=== PATIENT | female | born 1955 | race Caucasian/White ===

== ENCOUNTER → 2023-01-21 | Outpatient (CLI) | payer MEDICARE, MEDICAID, SELFPAY ==
--- NOTE | 2023-01-21 11:25 | MRI_ITS ---
EXAM: MR PELVIS WITHOUT AND WITH INTRAVENOUS CONTRAST CLINICAL INDICATION: PERIURETHRAL CYST -- URETHRA TECHNIQUE: Multiplanar and multisequence MR images of the pelvis without and with intravenous contrast. CONTRAST: 17 mL Clariscan COMPARISON: No relevant prior studies available. FINDINGS: APPENDIX: Not seen INTRAPERITONEAL SPACE: Unremarkable. No ascites or other fluid collection. BLADDER: Not well distended. No bladder wall thickening. No urinary bladder calculi. Normal appearance of the urethra (image 14 series 10, image 12 series 5) without diverticulum. REPRODUCTIVE: Hysterectomy. No adnexal masses. BONES/JOINTS: Unremarkable. No suspicious lytic or blastic abnormality. SOFT TISSUES: Unremarkable. No pelvic wall hernia. LYMPH NODES: Unremarkable. No enlarged lymph nodes. MRI/Pelvis W/WO Contrast IMPRESSION: Normal pelvis MRI. Electronically Signed: Sohail Greer (Brooks), at 7:43 EDT Reading Location ID and State: [facility] / [place] , Service support ,
[2023-01-21 12:00] LABS: CREATININE FINGERSTICK < 0.9 mg/dL (0.55-1.02); EGFR FINGERSTICK > 60.0000 mL/min (>60)
== END | disposition home or self-care (01) ==
LOC: MRI 11:04
PROVIDERS: PCP Student in an Organized Health Care Education/Training Program; Referring Provider Urology; Visit Provider Urology
DX: N36.8 Other specified disorders of urethra (principal)
CPT/HCPCS: 72197; A9575

== ENCOUNTER 2023-02-11 08:51 | Day surgery (SDC) | payer MEDICARE, MEDICAID, SELFPAY ==
[2023-02-11] VITALS (7 sets, daily range): BP systolic 101–116; BP diastolic 60–78; PULSE 63–89; RESP 14–17; TEMP 36.2–36.9; O2SAT 91–95; BMI 32.5
--- NOTE | 2023-02-11 09:03 | EKG12_ITS ---
Test Reason : PRE OP Blood Pressure : / mmHG Vent. Rate : 065 BPM Atrial Rate : 065 BPM P-R Int : 108 ms QRS Dur : 082 ms QT Int : 418 ms P-R-T Axes : 127 090 147 degrees QTc Int : 434 ms Suspect arm lead reversal, interpretation assumes no reversal Unusual P axis, possible ectopic atrial rhythm Abnormal ECG No previous ECGs available Confirmed by RISA VALENTE, DESMOND ([id number]), deputy editor in chief JOSSY WHITTEN ([id number]) on 02/12/2023 9:29:33 AM Referred By: Eli Bruno Confirmed By:DESMOND LORD MD
[2023-02-11] MEDS: Lactated Ringers 1,000 ML 15 ML IV (09:27)
[2023-02-11 09:41] LABS: Hematocrit 42.1 % (37-47); Hemoglobin 14.2 g/dL (12.0-15.0); Mean Corp Hgb Conc 33.7 g/dL (32-36); Mean Corpuscular Hgb 32.3 pg (27.0-32.0); Mean Corpuscular Volume 95.9 fL (81-99); Mean Platelet Vol. 10.3 fl (6.2-12.0); Platelet Count 168 K/mm3 (150-450); RBC Distribution Width CV 12.3 % (11.6-14.6); RBC Distribution Width SD 43.5 fl (35.1-43.9); Red Blood Count 4.39 M/mm3 (4.2-5.4); White Blood Count 6.2 K/mm3 (4.4-11.0)
[2023-02-11 09:51] LABS: Anion Gap 7 (5-15); BUN 18 mg/dL (7-18); BUN/Creat Ratio 21.1 RATIO (10-20); Calcium,Total 9.5 mg/dL (8.5-10.1); Chloride 105 mmol/L (98-107); Creatinine, Serum 0.85 mg/dL (0.55-1.02); EST Glomerular Filtration Rate 71 mL/min (>60); Est Glom Filt Rate - Afr Amer 86 mL/min (>60); Estimated Creatinine Clearance 55.46 ml/min; Glucose 153 mg/dL (74-106); Potassium 4.1 mmol/L (3.5-5.1); Sodium Level 139 mmol/L (136-145)
[2023-02-11 10:02] LABS: Hemoglobin A1c 6.8 % (3.8-5.6)
--- NOTE | 2023-02-11 10:03 | PCM.HP.STD ---
[facility] - General General Date of Service: 02/11/23 Chief Complaint: bladder lesions [facility] Narrative YESY MORRIS, is a 68 F who presents for bladder biopsy with fulguration as management for Hunner's ulcerations seen on cystoscopy in the office. Informed consent has been obtained. Today the patient denies any bladder pain. [facility] Medical History (Updated 02/11/23 @ 10:[address] Eli Bruno MD) Arthritis Back pain Cardiology follow-up encounter CPAP (continuous positive airway pressure) dependence Diabetes Dietary restriction Fatty liver Heartburn High cholesterol History of echocardiogram History of hiatal hernia History of IBS History of irregular heartbeat History of pain when walking History of stress test Hunner's ulcer Hypertension Interstitial cystitis Leg cramps Migraine headache MVP (mitral valve prolapse) Neuropathy Post-menopausal Psoriasis Restless legs Shortness of breath on exertion Syncope Wears glasses Home Medications atenolol 100 mg tablet 100 mg PO QHS 02/08/23 [History Last Taken 02/10/23] calcium carbonate 975 mg-magnesium carbonate 232 mg oral tablet 1 tab PO DAILY 02/08/23 [History Last Taken 02/10/23] coenzyme Q10 100 mg capsule (Co Q-10) 100 mg PO QHS 02/08/23 [History Last Taken 02/10/23] docusate sodium 100 mg capsule (Colace) 100 mg PO QHS 02/08/23 [History Last Taken 02/10/23] melatonin 3 mg capsule 3 mg PO QHS 02/08/23 [History Last Taken 02/10/23] multivitamin (Daily Multi-Vitamin tablet) 1 tab PO DAILY 02/08/23 [History Last Taken 02/10/23] omega 8-crn-qpp-fish oil 1,200 mg (144 mg-216 mg) capsule (Fish Oil) 1 cap PO QHS 02/08/23 [History Last Taken 02/10/23] paroxetine HCl 40 mg tablet 40 mg PO QHS 02/08/23 [History Last Taken 02/10/23] psyllium husk 0.4 gram capsule (Daily Fiber) 0.4 g PO QHS 02/08/23 [History Last Taken 02/10/23] Allergy/AdvReac Type Severity Reaction Status Date / Time bee venom protein (honey bee) Allergy Severe Hives Verified 02/11/23 08:57 pentazocine [From Taljamia] Allergy Intermediate PASSED OUT Verified 02/11/23 08:57 Surgical History History of cardiac catheterization Hx of colonoscopy Hx of hysterectomy Hx of shoulder surgery Social History Smoking Status: Never smoker ROS Constitutional Constitutional: Reports systems reviewed and no addt'l complaints, except as documented; Denies chills, fever(s), lethargy or poor appetite Eyes Eyes: Reports systems reviewed and no addt'l complaints, except as documented ENT HEENT: Reports systems reviewed and no addt'l complaints, except as documented Cardiovascular Cardiovascular: Denies chest pain, dizziness or dyspnea Respiratory/Chest Respiratory/Chest: Reports systems reviewed and no addt'l complaints, except as documented; Denies chest tightness, cough, dyspnea or inability to speak Gastrointestinal Gastrointestinal: Denies abdominal pain or cramping Genitourinary Genitourinary: Reports nocturia, urinary frequency and urinary urgency Musculoskeletal Musculoskeletal: Reports systems reviewed and no addt'l complaints, except as documented Integumentary Integumentary: Reports systems reviewed and no addt'l complaints, except as documented Neurologic Neurologic: Reports systems reviewed and no addt'l complaints, except as documented Psychiatric Psychiatric: Reports systems reviewed and no addt'l complaints, except as documented Endocrine Endocrinology: Reports systems reviewed and no addt'l complaints, except as documented Hematologic/Lymphatic Hematologic/Lymphatic: Reports systems reviewed and no addt'l complaints, except as documented Allergic/Immunologic Allergic/Immunologic: Reports systems reviewed and no addt'l complaints, except as documented Vital Signs Vital Signs Vital Signs: 02/11/23 09:27 02/11/23 09:27 Temperature 97.9 F Temperature Source Temporal Pulse Rate 63 Respiratory Rate 17 Respiratory Pattern Normal Blood Pressure 116/78 Blood Pressure Mean 90 Blood Pressure Source Monitor Blood Pressure Position Semi-Fowlers Blood Pressure Location Left Arm Pulse Ox 93 Oxygen Delivery Method Room Air Weight Weight: 86 kg Body Mass Index (BMI) 32.5 Physical Exam Const alert, oriented x3 and no apparent distress General Appearance: cooperative, comfortable and well kempt HEENT normocephalic, head/scalp atraumatic, hearing grossly normal bilaterally, external ears normal and external nose normal Eyes General Eye: normal appearance of both eyes Neck supple General: normal visual inspection Lymph Lymphatic: no lymphedema noted Chest inspection of chest normal Chest: symmetrical chest wall rise Resp normal respiratory effort, normal air movement, no retractions and no use of accessory muscles Effort and Inspection: able to speak in complete sentences Cardio regular rate GI soft to palpation, non-tender and non-distended no CVA tenderness Back/Spine no CVA tenderness Extremity normal to inspection Skin no rashes or lesions noted, no wounds, no jaundice, no petechiae and no mottling Neuro oriented x3, CN's II-XII intact bilaterally and moves all extremities Psych mental status grossly normal and thought process normal Results Lab / Micro Data 02/11/23 09:20 02/11/23 09:20 Labs: Laboratory Results - last 24 hr 02/11/23 09:20: WBC 6.2, RBC 4.39, Hgb 14.2, Hct 42.1, MCV 95.9, MCH 32.3 H, MCHC 33.7, RDW Std Deviation 43.5, RDW Coeff of [place] 12.3, Plt Count 168, MPV 10.3, Sodium 139, Potassium 4.1, Chloride 105, Carbon Dioxide 27.0, Anion Gap 7, BUN 18, Creatinine 0.85, Estim Creat Clear Calc 55.46, Est GFR (MDRD) Af Amer 86, Est GFR (MDRD) Non-Af 71, BUN/Creatinine Ratio 21.1 H, Glucose 153 H, Hemoglobin A1c 6.8 H, Calcium 9.5 Assessment & Plan Assessment/Plan (1) Hunner's ulcer: (2) Interstitial cystitis: PLAN: Plan Proceed with cystoscopy, bladder biopsy with fulguration Informed consent has been obtained
[2023-02-11 10:09] LABS: Bedside Glucose 152 mg/dL (74-106)
[2023-02-11] MEDS: Cefazolin 2 GM in 0.9% Normal Saline 100 ML IV (10:15)
--- NOTE | 2023-02-11 10:25 | BLA_PTH ---
PATIENT: YESY MORRIS LOC: [facility] [place][id number] AGE/SX: 68/F ROOM: RE02/11/[address]: Dr. Eli Bruno MD : 1955 BED: DIS: 02/11/2023 SPEC #: [id number] RECD: 02/11/23 11:05 STATUS: ANDRÉS SIMS #: [id number] ANDREA: 02/11/23 10:[address]: Eli Bruno DEPT: SURGICAL PATHOLOGY RECD BY: Kiera Kong ENTERED: 02/11/23 11:17 SP TYPE: BLADDER BX OTHR DR: Dr. Jewel Desai DO Tissues: Urinary bladder, NOS Procedures: Surgery Specimen Level IV HEADER OPERATION: Cysto, bladder biopsy with fulguration PRE-OP DIAGNOSIS: Hunner's ulcer, interstitial cystitis TISSUE SUBMITTED: Bladder biopsy MICROSCOPIC DIAGNOSIS Bladder, biopsy: Fragments of urothelial mucosa with moderate chronic inflammation and minimal acute inflammation. Negative for malignancy. See comment. RAJINDER:mana 02/12/2023 COMMENT The mucosa is focally denuded. Inflammatory cell infiltrate predominantly consists of lymphocytes mixed with a few eosinophils and rare neutrophils. Clinical correlation and appropriate follow up are necessary. MICROSCOPIC DESCRIPTION Slides are reviewed. GROSS DESCRIPTION Received in fixative is one container labeled with the patient's name and designated bladder biopsy. The specimen consists of one irregular fragment of light lara soft tissue that measures 0.3 x 0.2 x 0.1 cm. The specimen is totally submitted in one cassette. / RAJINDER:mana 02/11/2023 TC:3 CPT: 58963
--- NOTE | 2023-02-11 11:07 | PCM.OPRPT ---
Report of Operation Date of Procedure: 02/11/23 Pre-Operative Diagnosis: Interstitial cystitis, Hunner's ulcers Post-Operative Diagnosis: Same Surgery/Procedure Performed:: Cystoscopy, bladder biopsy with fulguration Surgeon: Eli Bruno Type of Anesthesia: MAC Specimen's removed: Bladder biopsy x2 Description of Procedure: The patient is a 68-year-old female who underwent cystoscopy in the office revealing 2 Hunner's ulcerations 1 on each lateral bladder wall. She now presents for surgical intervention. Informed consent was obtained. The patient was taken to the operating room and placed on the operating room table. Anesthesia monitored the head, neck, airway, IV access and vital signs throughout the case. Once anesthesia was appropriately administered, the patient was placed into dorsolithotomy position was prepped and draped in usual sterile fashion. The cystoscope was inserted through the urethra under direct visualization into the urinary bladder. The previously identified ulcerations are once again seen along with another ulceration in the posterior bladder wall. 2 biopsies were taken. The ulceration on the lateral wall on the left side was unable to be biopsied safely secondary to the angle. This area was fulgurated for tissue treatment. The biopsied areas were fulgurated for hemostatic control and tissue treatment as well. At the conclusion of the case bilateral ureteral orifices remained completely intact. There was hemostasis. The ulcerative lesions were appropriately fulgurated. The patient's bladder was then emptied and she was awakened and taken to the recovery room in good condition. There were no complications during this procedure. Grafts/Implants Used: None Complications None Admit VTE Documentation VTE Present on Admission: Yes VTE Mechan Device Prophylaxis: SCD's VTE Pharm Prophylaxis ordered?: No Reason prophylaxis not ordered:: Treatment Not Indicated
--- NOTE | 2023-02-11 11:12 | DCINST_ITS ---
Discharge Instructions Diet Discharge Diet: No restrictions Activity Discharge Activity: Return to Normal Activity Dressing / Incision Call your doctor if you observe: Fever of 101 or Higher, Inability to urinate and Inability to have a bowel movement Follow Up Care Please Follow Up With: Eli Bruno MD When: The office will call to set up an appt to be seen in 1-2 weeks Test Results: Test results from this visit will be discussed in further detail at your follow- up appointment, if applicable. Discharge Plan Admission Attending Provider: Eli Bruno Primary Care Provider: Jewel Desai Discharge Orders/Prescriptions Prescriptions: New oxycodone-acetaminophen [Percocet] 5-325 mg tablet 1 tab PO Q8H PRN (Reason: pain) 3 Days Qty: 10 0RF cephalexin [cephalexin] 500 mg capsule 500 mg PO Q12 3 Days Qty: 6 0RF phenazopyridine [Pyridium] 200 mg tablet 200 mg PO TID PRN PRN (Reason: Bladder Spasms) 7 Days Qty: 30 3RF Continued atenolol 100 mg tablet 100 mg PO QHS paroxetine HCl 40 mg tablet 40 mg PO QHS omega 8-wht-frt-fish oil [Fish Oil] 1,200 (144-216) mg capsule 1 cap PO QHS coenzyme Q10 [Co Q-10] 100 mg capsule 100 mg PO QHS multivitamin [Daily Multi-Vitamin] Tablet 1 tab PO DAILY calcium and magnesium carbonat 975-232 mg tablet 1 tab PO DAILY melatonin 3 mg capsule 3 mg PO QHS docusate sodium [Colace] 100 mg capsule 100 mg PO QHS psyllium husk [Daily Fiber] 0.4 gram capsule 0.4 g PO QHS Referrals / Follow Up: Jewel Desai DO [Primary Care Provider] - Disposition Disposition (needs filled in before D/C Order can be placed): Home, Self Care
[2023-02-11] MEDS: Oxycodone/Apap 5/325 Tablet PO (11:26)
== END 2023-02-11 12:10 | disposition home or self-care (01) ==
LOC: SDC 08:54 → AC 08:56
PROVIDERS: Anesthesiology; PCP Student in an Organized Health Care Education/Training Program; Referring Provider Urology; Visit Provider Urology
PROC: 0TBB8ZX Excision of Bladder, Via Natural or Artificial Opening Endoscopic, Diagnostic (ICD-10-PCS; CPT 52204; principal; 2023-02-11 10:15)
DX: N30.10 Interstitial cystitis (chronic) without hematuria (principal); E11.40 Type 2 diabetes mellitus with diabetic neuropathy, unspecified; E78.00 Pure hypercholesterolemia, unspecified; I10 Essential (primary) hypertension
CPT/HCPCS: 52204; 00910; 80048; 82962; 83036; 85027; 88305; 93005; J7120; J2405

== ENCOUNTER → 2023-11-29 | Outpatient (CLI) | payer MEDICARE, MEDICAID, SELFPAY ==
[2023-11-29 17:50] LABS: Hemoglobin 13.8 g/dL (12.0-15.0); Mean Corp Hgb Conc 33.7 g/dL (32-36); Mean Corpuscular Volume 95.1 fL (81-99); Mean Platelet Vol. 10.6 fl (6.2-12.0); Platelet Count 209 K/mm3 (150-450); RBC Distribution Width CV 12.6 % (11.6-14.6); RBC Distribution Width SD 44.4 fl (35.1-43.9); Red Blood Count 4.31 M/mm3 (4.2-5.4)
[2023-11-29 18:30] LABS: Anion Gap 6 (5-15); BUN 24 mg/dL (7-18); BUN/Creat Ratio 24.5 RATIO (10-20); Calcium,Total 10.3 mg/dL (8.5-10.1); Chloride 103 mmol/L (98-107); Creatinine, Serum 0.98 mg/dL (0.55-1.02); EST Glomerular Filtration Rate 60 mL/min (>60); Est Glom Filt Rate - Afr Amer 73 mL/min (>60); Glucose 105 mg/dL (74-106); Potassium 4.1 mmol/L (3.5-5.1); Sodium Level 136 mmol/L (136-145)
== END | disposition home or self-care (01) ==
LOC: MTLAB 15:48
PROVIDERS: PCP Student in an Organized Health Care Education/Training Program; Referring Provider Urology; Visit Provider Urology
DX: N30.10 Interstitial cystitis (chronic) without hematuria (principal)
CPT/HCPCS: 36415; 80048; 85027

== ENCOUNTER 2023-12-16 08:12 | Day surgery (SDC) | payer MEDICARE, SELFPAY ==
[2023-12-16 08:28] VITALS: BP 127/70; PULSE 62; RESP 16; TEMP 36.1; O2SAT 100; BMI 29.3
[2023-12-16] MEDS: Lactated Ringers 1,000 ML 15 ML IV (08:41)
[2023-12-16 09:01] LABS: Bedside Glucose 105 mg/dL (74-106)
--- NOTE | 2023-12-16 09:29 | EX.PCM.DISCH ---
Discharge Instructions Diet Discharge Diet: No restrictions Activity Discharge Activity: Return to Normal Activity Dressing / Incision Call your doctor if you observe: Fever of 101 or Higher, Inability to urinate and Inability to have a bowel movement Follow Up Care Please Follow Up With: Eli Bruno MD When: Next week in the office to discuss biopsy results. Test Results: Test results from this visit will be discussed in further detail at your follow-up appointment, if applicable. Discharge Plan Admission Attending Provider: Eli Bruno Primary Care Provider: Jewel Desai Instructions Print Language: Indonesian Discharge Orders/Prescriptions Prescriptions: New oxycodone-acetaminophen [Percocet] 5-325 mg tablet 1 tab PO Q8H PRN (Reason: pain) 3 Days Qty: 10 0RF cephalexin 500 mg capsule 500 mg PO Q12 3 Days Qty: 6 0RF phenazopyridine [Pyridium] 200 mg tablet 200 mg PO TID PRN PRN (Reason: Bladder Spasms) 7 Days Qty: 30 0RF Continued atenolol 100 mg tablet 100 mg PO QHS omega 8-fdd-dol-fish oil [Fish Oil] 1,200 (144-216) mg capsule 1 cap PO QHS coenzyme Q10 [Co Q-10] 100 mg capsule 100 mg PO QHS multivitamin [Daily Multi-Vitamin] Tablet 1 tab PO DAILY calcium and magnesium carbonat 975-232 mg tablet 2 tab PO DAILY melatonin 3 mg capsule 3 mg PO QHS docusate sodium [Colace] 100 mg capsule 100 mg PO QHS psyllium husk [Daily Fiber] 0.4 gram capsule 0.4 g PO QHS fluoxetine 40 mg capsule 40 mg PO DAILY atorvastatin 10 mg tablet 10 mg PO DAILY metformin 500 mg tablet extended release 24 hr 500 mg PO DAILY trospium 60 mg capsule,extended release 24hr 60 mg PO DAILY mirabegron [Myrbetriq] 50 mg tablet extended release 24 hr 50 mg PO DAILY Referrals / Follow Up: Jewel Desai DO [Primary Care Provider] - Disposition Disposition (needs filled in before D/C Order can be placed): Home, Self Care
--- NOTE | 2023-12-16 09:32 | PCM.OPRPT ---
Report of Operation Date of Procedure: 12/16/23 Pre-Operative Diagnosis: Interstitial cystitis with Hunner's ulcers Post-Operative Diagnosis: Same Surgery/Procedure Performed:: Cystoscopy with bladder biopsy and fulguration Surgeon: Eli Bruno Type of Anesthesia: MAC Specimen's removed: Bladder biopsy Description of Procedure: The patient is a 68-year-old female with interstitial cystitis who has had Hunner's ulcers before. She had a repeat cystoscopy revealing recurrence. She now presents for biopsy and fulguration for management. Informed consent has been obtained. The patient was taken to the operating room and placed on the operating room table. Anesthesia monitored the head, neck, airway, IV access and vital signs throughout the case. Once anesthesia was appropriately administered, she was placed into dorsolithotomy position and was prepped and draped in usual sterile fashion. The cystoscope was inserted through the urethra under direct visualization into the urinary bladder. The 5 areas of concern were identified, 3 about 5mm in size, and 2 at 1cm in diameter. Flexible biopsy forceps were used to take biopsy specimens of each of these areas. The [place] cautery was then used to fulgurate these areas for hemostatic control and tissue treatment. At this time the bladder was emptied and the cystoscope was removed. She was awakened and taken to the recovery room in good condition. There were no complications during this procedure. Grafts/Implants Used: None Complications None Admit VTE Documentation VTE Present on Admission: Yes VTE Mechan Device Prophylaxis: SCD's VTE Pharm Prophylaxis ordered?: No Reason prophylaxis not ordered:: Treatment Not Indicated
[2023-12-16] MEDS: Cefazolin 2 GM in 0.9% Normal Saline (100mL Bag) 100 ML IV (09:35)
--- NOTE | 2023-12-16 09:40 | BLA_PTH ---
PATIENT: YESY MORRIS [place] [facility] [place][id number] AGE/SX: 68/F ROOM: RE12/16/[address]: Dr. Eli Bruno MD : 1955 BED: DIS: 12/16/2023 SPEC #: [id number] RECD: 12/16/23 10:24 STATUS: ANDRÉS MARIA ESTHERBernardino #: [id number] ANDREA: 12/16/23 09:[address]: Eli Bruno DEPT: SURGICAL PATHOLOGY RECD BY: Kiera Kong ENTERED: 12/16/23 12:18 SP TYPE: BLADDER BX OTHR DR: Dr. Jewel Desai DO Tissues: Urinary bladder, NOS Procedures: Surgery Specimen Level IV HEADER OPERATION: Cysto, bladder, fulguration, bladder tumor PRE-OP DIAGNOSIS: Interstitial cystitis, lower abdominal pain TISSUE SUBMITTED: Bladder biopsy MICROSCOPIC DIAGNOSIS Urinary bladder, biopsy: Chronic follicular cystitis. AM/mr 12/17/2023 MICROSCOPIC DESCRIPTION Slides are reviewed. GROSS DESCRIPTION Received in fixative is one container labeled with the patient's name and designated Bladder biopsy. The specimen consists of two irregular fragments of light lara soft tissue that in aggregate measure 0.3 x 0.2 x 0.1 cm. The specimen is totally submitted in one cassette. AM/mr 12/16/2023 TC:3 CPT:44124
[2023-12-16 10:10] VITALS: BP 100/59; BP 127/70; PULSE 71; RESP 16; TEMP 36.3; O2SAT 90
[2023-12-16 10:15] VITALS: BP 127/70; BP 97/60; PULSE 69; RESP 16; O2SAT 91
[2023-12-16 10:20] VITALS: BP 127/70; BP 99/65; PULSE 69; RESP 16; TEMP 36.3; O2SAT 97
[2023-12-16 11:33] VITALS: BP 109/62; BP 127/70; PULSE 63; RESP 14; TEMP 36.1; O2SAT 96
== END 2023-12-16 11:38 | disposition home or self-care (01) ==
LOC: SDC 08:13 → AC 08:14
PROVIDERS: PCP Student in an Organized Health Care Education/Training Program; Referring Provider Urology; Visit Provider Urology
PROC: 0TBB8ZX Excision of Bladder, Via Natural or Artificial Opening Endoscopic, Diagnostic (ICD-10-PCS; CPT 52234; principal; 2023-12-16 09:30)
DX: N30.10 Interstitial cystitis (chronic) without hematuria (principal); E11.9 Type 2 diabetes mellitus without complications; E78.5 Hyperlipidemia, unspecified; Z79.899 Other long term (current) drug therapy; Z79.84 Long term (current) use of oral hypoglycemic drugs; I10 Essential (primary) hypertension
CPT/HCPCS: 52234; 82962; 88305; J2405

== ENCOUNTER 2024-11-07 11:55 | Day surgery (SDC) | payer MEDICARE, SELFPAY ==
--- NOTE | 2024-11-02 15:08 | PAT.ANESEVAL ---
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 When Was Last Pacemaker Check QUESTION #4 FULL TEXT: You/Your Family Experience fever (hyperthermia) with Anesthesia Last Oral Intake Last Oral intake: Last Oral Intake NPO since Meds taken in AM with sips of water? Meds patient instructed to take am of surgery PONV PONV - architectural draftsman: PONV - architectural draftsman Female Yes 11/02/24 11:41 HX of Motion Sickness No 11/02/24 11:41 HX of N/V After Surgery No 11/02/24 11:41 Non-Smoker Yes 11/02/24 11:41 Duration of Surgery greater No 11/02/24 11:41 than 60 minutes Number of Risk Factors 2 11/02/24 11:41 PONV Score Moderate Risk 11/02/24 11:41 Height & Weight Height & Weight: Anesthesia: Height & Weight Height 5 ft 4 in 09/04/24 13:40 Respiratory Assessment Respiratory Assessment - architectural draftsman: Respiratory Tract Infection Hx - architectural draftsman Hx Respiratory Tract Infection No 11/02/24 11:41 STOP Sleep Apnea STOP Sleep Apnea - architectural draftsman: STOP Sleep Apnea - architectural draftsman Hx Hypertension Yes: CONTROLLED WITH MED 11/02/24 11:41 Hx Sleep Apnea Yes 11/02/24 11:41 CPAP Yes: NONCOMPLIANT 11/02/24 11:41 BIPAP No 11/02/24 11:41 Do you snore loudly (louder than talking or can be heard Do you often feel tired/ fatigued/ sleepy during daytime? Has anyone observed you stop breathing during sleep? STOP Results Positive 11/02/24 11:41 QUESTION #5 FULL TEXT : Do you snore loudly (louder than talking or can be heard through closed doors)? 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 Specify any problems Hx of Preganancy in last 3 No 11/02/24 11:41 Months Nurse Filling Out Transfusion VCHRISTIN 11/02/24 11:41 & Questions: Date: 11/02/24 11/02/24 11:41 Time: 11:42 11/02/24 11:41 Patient unable to answer at this time (ie. confused, unrespo /Reproduction History /Reproductive History - architectural draftsman: /Reproductive Hx- architectural draftsman Hx Now No 11/02/24 11:41 Gestational Age (in weeks): EDC: Hx Hx Para Hx Section SAB No 11/02/24 11:41 [facility] Medical History (Updated 11/02/24 @ 11:41 by Lauren Phillips) Hunner's ulcer Wears glasses Post-menopausal Psoriasis Diabetes Arthritis Interstitial cystitis Fatty liver High cholesterol Restless legs Back pain Migraine headache Syncope Dietary restriction History of hiatal hernia History of IBS Heartburn CPAP (continuous positive airway pressure) dependence Shortness of breath on exertion Leg cramps Neuropathy History of pain when walking History of echocardiogram History of stress test Cardiology follow-up encounter History of irregular heartbeat MVP (mitral valve prolapse) Hypertension Home Medications ?Medication ?Instructions ?Recorded ?Last Taken ?Type atenolol 100 mg tablet 100 mg PO QHS 02/08/23 12/15/23 22:00 History docusate sodium 100 mg capsule 100 mg PO QHS 02/08/23 02/10/23 History (Colace) melatonin 3 mg capsule 3 mg PO QHS 02/08/23 02/10/23 History multivitamin (Daily Multi-Vitamin 1 tab PO DAILY 02/08/23 02/10/23 History tablet) omega 8-hbi-lti-fish oil 1,200 mg 1 cap PO QHS 02/08/23 02/10/23 History (144 mg-216 mg) capsule (Fish Oil) psyllium husk 0.4 gram capsule 0.4 g PO QHS 02/08/23 02/10/23 History (Daily Fiber) atorvastatin 10 mg tablet 10 mg PO DAILY 12/14/23 Unknown History metformin 500 mg tablet,extended 500 mg PO DAILY 12/14/23 Unknown History release 24 hr diphenhydramine HCl 25 mg tablet 25 mg PO Q4H PRN ALLERGIES 09/04/24 Unknown History (Allergy (diphenhydramine)) duloxetine 60 mg capsule,delayed 60 mg PO QDAY 09/04/24 Unknown History release epinephrine 0.3 mg/0.3 mL 0.3 mg IM ONCE PRN anaphylaxis 09/04/24 Unknown History injection, auto-injector hydrocortisone 2.5 % topical cream 1 applic [place] QD-BID PRN rectal 09/04/24 Unknown Rx with perineal applicator bleeding #30 grams (Anusol-HC) pantoprazole 40 mg tablet,delayed 40 mg PO QDAY #90 tabs 09/04/24 Unknown Rx release peg 3350-electrolytes 236 240 ml PO Q10M #4,000 mL 09/04/24 Unknown Rx gram-22.74 gram-6.74 gram-5.86 gram solution (Golytely) polyethylene glycol 3350 17 4 g PO QDAY 09/04/24 Unknown History gram/dose oral powder (Miralax) buspirone 10 mg tablet 10 mg PO BID 11/02/24 Unknown History calcium no.26 167 mg-magnesium 2 cap PO DAILY 11/02/24 Unknown History no.15 83 mg-zinc 5 mg capsule Allergy/AdvReac Type Severity Reaction Status Date / Time bee venom protein (honey bee) Allergy Severe Hives Verified 11/02/24 11:32 pentazocine (From Talwin) Allergy Intermediate PASSED OUT Verified 11/02/24 11:32 Surgical History (Updated 11/02/24 @ 11:41 by Lauren Phillips) Hx of cystoscopy History of D&C History of cardiac catheterization Hx of colonoscopy Hx of shoulder surgery Hx of hysterectomy Social History Smoking Status: Never smoker Audit: Pertinent Findings Pertinent Findings EKG Perinent findings: February 23, 2024. Sinus rhythm. Slight high lateral repolarization disturbance, consider ischemia, left ventricular overload, or aspecific change. February 11, 2023. Unusual P axis possible ectopic atrial rhythm. 65 bpm. Echo (EF%) pertinent findings: September 24, 2020. Normal ejection fraction and overall normal mitral valve. PA systolic pressure is 33. Consult pertinent findings: September 06, 2024. 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 1. Shortness of breath-cardiac etiology has been ruled out. Most likely due to untreated sleep apnea. 2. Coronary artery disease in the [place] artery-coronary CTA done September 16, 2023 showed a mild mid LAD and mild proximal RCA. 3. Mitral valve prolapse-echocardiogram showed normal mitral valve. Patient has no signs or symptoms of worsening valve function. 4. Obstructive sleep apnea-patient is noncompliant with CPAP machine. Patient is to increase compliance. 5. Preop cardiovascular clearance-this is a low risk procedure. Patient may proceed at low cardiac risk. Recommendation Anesthesia Recommendation Anesthesia recommendation: OPTIMIZED for anesthesia
[2024-11-07] VITALS (8 sets, daily range): BP systolic 116–124; BP diastolic 59–71; PULSE 70–79; RESP 14–18; TEMP 36.4–36.9; O2SAT 96–99; BMI 31.2
[2024-11-07 12:45] LABS: Bedside Glucose 114 mg/dL (74-106)
--- NOTE | 2024-11-07 12:56 | PRE.ANES_ITS ---
ASA Classification* ASA Classification ASA Classification: 3 Assessment & Plan Anesthesia* Anesthesia Assessment Anesthesia Assessment: Discussed sedation and/or anesthesia options, risks, benefits, and alternatives with patient/parents/legal guardian/POA. Questions invited. The patient/parents/legal guardian/POA seems to understand and agrees to proceed with anesthesia plan. Reviewed the physical assessment, medical history, allergy history and patient home medications list prior to surgery/procedure/anesthetic and documented any changes. Performed airway and anesthesia risk assessments. Anesthesia Type Anesthesia Type: MAC History Source History Obtained from:: Patient and Chart Anesthesia Focused Assessment* Temperature: 98.4 F Pulse Rate: 70 Blood Pressure: 124/59 Respiratory Rate: 18 Pulse Ox: 99 Oxygen Delivery Method: Room Air Airway Assessment Mouth opens: >3 cm Mallampati Score: III Teeth Condition: Missing (Patient has several missing teeth. Rest are tight) Neck Range of motion (ROM): Limited ROM (Slight decrease in extension) Focused Labs Anesthesia Preop lab: CBC WBC 9.0 K/mm3 (4.4-11.0) 11/29/23 15:50 11/29/23 RBC 4.31 M/mm3 (4.2-5.4) 11/29/23 15:50 11/29/23 Hgb 13.8 g/dL (12.0-15.0) 11/29/23 15:50 11/29/23 Hct 41.0 % (37-47) 11/29/23 15:50 11/29/23 Plt Count 209 K/mm3 (150-450) 11/29/23 15:50 11/29/23 CHEMISTRY Potassium 4.1 mmol/L (3.5-5.1) 11/29/23 15:50 11/29/23 Sodium 136 mmol/L (136-145) 11/29/23 15:50 11/29/23 BUN 24 mg/dL (7-18) H 11/29/23 15:50 11/29/23 Creatinine 0.98 mg/dL (0.55-1.02) 11/29/23 15:50 11/29/23 Glucose 105 mg/dL (74-106) 11/29/23 15:50 11/29/23 POC Glucose 114 mg/dL (74-106) H 11/07/24 12:18 11/07/24 COAG Pre-Assessment Diagnosis/Proposed Procedure Planned Operative Procedure(s): COLONOSCOPY/EGD Anesthesia History 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 When Was Last Pacemaker Check QUESTION #4 FULL TEXT: You/Your Family Experience fever (hyperthermia) with Anesthesia Last Oral Intake Last Oral intake: Last Oral Intake NPO since 22:00 11/07/24 12:23 Meds taken in AM with sips of water? 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 Female Yes 11/02/24 11:41 HX of Motion Sickness No 11/02/24 11:41 HX of N/V After Surgery No 11/02/24 11:41 Non-Smoker Yes 11/02/24 11:41 Duration of Surgery greater No 11/02/24 11:41 than 60 minutes Number of Risk Factors 2 11/02/24 11:41 PONV Score Moderate Risk 11/02/24 11:41 Height & Weight Height & Weight: Anesthesia: Height & Weight Height 5 ft 4 in 11/07/24 12:23 Weight: 82.6 kg 11/07/24 12:23 Body Mass Index (BMI) 31.2 11/07/24 12:23 Respiratory Assessment Respiratory Assessment - dye house supervisor: Respiratory Tract Infection Hx - dye house supervisor Hx Respiratory Tract Infection No 11/02/24 11:41 Any additional information?: Yes Hx Respiratory Tract Infection: Yes (Patient states she has a stuffy sinuses this morning.) STOP Sleep Apnea STOP Sleep Apnea - dye house supervisor: STOP Sleep Apnea - dye house supervisor Hx Hypertension Yes: CONTROLLED WITH MED 11/02/24 11:41 Hx Sleep Apnea Yes 11/02/24 11:41 CPAP Yes: NONCOMPLIANT 11/02/24 11:41 BIPAP No 11/02/24 11:41 Do you snore loudly (louder than talking or can be heard Do you often feel tired/ fatigued/ sleepy during daytime? Has anyone observed you stop breathing during sleep? STOP Results Positive 11/02/24 11:41 QUESTION #5 FULL TEXT : Do you snore loudly (louder than talking or can be heard through closed doors)? 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 Specify any problems Hx of Preganancy in last 3 No 11/02/24 11:41 Months Nurse Filling Out Transfusion VCHRISTIN 11/02/24 11:41 & Questions: Date: 11/02/24 11/02/24 11:41 Time: 11:42 11/02/24 11:41 Patient unable to answer at this time (ie. confused, unrespo /Reproduction History /Reproductive History - dye house supervisor: /Reproductive Hx- dye house supervisor Hx Now No 11/02/24 11:41 Gestational Age (in weeks): EDC: Hx Hx Para Hx Section SAB No 11/02/24 11:41 PFSH Medical History Hunner's ulcer Wears glasses Post-menopausal Psoriasis Diabetes Arthritis Interstitial cystitis Fatty liver High cholesterol Restless legs Back pain Migraine headache Syncope Dietary restriction History of hiatal hernia History of IBS Heartburn CPAP (continuous positive airway pressure) dependence Shortness of breath on exertion Leg cramps Neuropathy History of pain when walking History of echocardiogram History of stress test Cardiology follow-up encounter History of irregular heartbeat MVP (mitral valve prolapse) Hypertension Home Medications ?Medication ?Instructions ?Recorded ?Last Taken ?Type atenolol 100 mg tablet 100 mg PO QHS 02/08/2312/14 22:00 History docusate sodium 100 mg capsule 100 mg PO QHS 02/08/23 02/10/23 History (Colace) melatonin 3 mg capsule 3 mg PO QHS 02/08/23 3 History multivitamin (Daily Multi-Vitamin 1 tab PO DAILY 02/0802/10/23 History tablet) omega 6-onr-phw-fish oil 1,200 mg 1 cap PO QHS 3 02/10/23 History (144 mg-216 mg) capsule (Fish Oil) psyllium husk 0.4 gram capsule 0.4 g PO QHS 02/08/23 0 02/10/23 History (Daily Fiber) atorvastatin 10 mg tablet 10 mg PO DAILY 12/14/23 Unkn own History metformin 500 mg tablet,extended 500 mg PO DAILY 12/13 Unknown History release 24 hr diphenhydramine HCl 25 mg tablet 25 mg PO Q4H PRN JEREMIE RGIES 09/04/24 Unknown History (Allergy (diphenhydramine)) duloxetine 60 mg capsule,delayed 60 mg PO QDAY 5 Unknown History release epinephrine 0.3 mg/0.3 mL 0.3 mg IM ONCE PRN anaphylax is 09/04/24 Unknown History injection, auto-injector hydrocortisone 2.5 % topical cream 1 applic SC QD-BID PRN rectal 09/04/24 Unknown Rx with perineal applicator bleeding #30 grams (Anusol-HC) pantoprazole 40 mg tablet,delayed 40 mg PO QDAY #90 ta bs 09/04/24 Unknown Rx release peg 3350-electrolytes 236 240 ml PO Q10M #4,000 mL Unknown Rx gram-22.74 gram-6.74 gram-5.86 gram solution (Golytely) polyethylene glycol 3350 17 4 g PO QDAY 09/04/24 Unkno wn History gram/dose oral powder (Miralax) buspirone 10 mg tablet 10 mg PO BID 11/02/24 Unknow n History calcium no.26 167 mg-magnesium 2 cap PO DAILY 5 Unknown History no.15 83 mg-zinc 5 mg capsule Allergy/AdvReac Type Severity Reaction Status Date / Time bee venom protein (honey bee) Allergy Severe Hives Verified 11/07/24 12:23 pentazocine (From Talwin) Allergy Intermediate PASSED OUT Verified 11/07/24 12:23 Surgical History Hx of cystoscopy History of D&C History of cardiac catheterization Hx of colonoscopy Hx of shoulder surgery Hx of hysterectomy Social History Smoking Status: Never smoker Review of Systems (Anesthesia) ROS Narrative System reviewed and no additional complaints, except as documented.
--- NOTE | 2024-11-07 13:00 | EGD_PTH ---
PATIENT: YESY MORRIS LOC: [facility] U#:[id number] AGE/SX: 69/F ROOM: RE11/07/[address]: Dr. Rock Rasheed DO : 1955 BED: DIS: 11/07/2024 SPEC #: [id number] RECD: 11/08/24 09:40 STATUS: ANDRÉS LEVI #: [id number] ANDREA: 11/07/24 13:[address]: Rock Rasheed DEPT: SURGICAL PATHOLOGY RECD BY: Clovis Forman ENTERED: 11/08/24 09:41 SP TYPE: EGD BIOPSY JONATHAN DR: Dr. Jewel Desai DO Tissues: A - Esophagus, NOS B - Gastric mucous membrane C - Duodenum, NOS Procedures: Immunohistochemical Stains Surgery Specimen Level IV HEADER OPERATION: Colonoscopy, EGD, biopsy PRE-OP DIAGNOSIS: Constipation, rectal bleeding, lower abdominal pain, nausea, heartburn TISSUE SUBMITTED: A- Random esophagus biopsy, B- Gastric body biopsy, C- Duodenum biopsy MICROSCOPIC DIAGNOSIS A. Esophagus, random, biopsy: * Squamous mucosa with mild reactive changes. * Negative for increased eosinophils. B. Stomach, body, biopsy: * Oxyntic mucosa with mild chronic inflammation. * IHC negative for H pylori organisms. C. Small bowel, duodenum, biopsy: * Mild villous blunting with increased intraepithelial lymphocytes - see note. * Zeinab gland hyperplasia. * Note: This pattern of injury is etiologically nonspecific?and the differential diagnosis includes sensitivity to gluten and non-gluten proteins, small intestinal bacterial overgrowth, stasis related changes, infection, protein calorie malnutrition, tropical sprue, and medication injury (NSAIDs, Olmesartan / Benicar, Mycophenolic acid, Idelalisib, for example). If celiac disease is a clinical concern, additional clinical studies, such as tTG-IgA, are recommended. MICROSCOPIC DESCRIPTION Slides are reviewed. These tests were developed and their performance characteristics determined by [facility]. They may not have been cleared or approved by the U.[place]. Food and Drug Administration. The FDA has determined that such clearance or approval is not necessary. The above immunohistochemical/dualISH markers are ordered and reviewed by the Pathologist. GROSS DESCRIPTION A. Received in formalin in a container labeled with the patient's name, date of , and random esophagus biopsy are 2 lara-pink fragments of mucosal tissue, each measuring 0.4 x 0.3 x 0.2 cm. Submitted in toto in A1. B. Received in formalin in a container labeled with the patient's name, date of , and gastric body for histo and H. pylori is a 0.4 x 0.3 x 0.3 cm fragment of lara-pink mucosal tissue. Submitted in toto in B1. C. Received in formalin in a container labeled with the patient's name, date of , and duodenum biopsy are 2 lara-pink fragments of mucosal tissue, each measuring 0.3 x 0.3 x 0.3 cm. Submitted in toto in C1. [facility] 11/07/2024 CPT:02925d3,79306
--- NOTE | 2024-11-07 13:38 | PCM.HP.STD ---
HPI - General General Date of Admission: 11/07/24 Date of Service: 11/07/24 Chief Complaint: RLQ pain, chest pain and lower GI bleeding HPI Narrative YESY MORRIS, is a 69 F who presents for the evaluation of RLQ pain, chest pain and lower GI bleeding - Anxiety/Depression - scheduled to see counselor this evening for the first time - Chest pain - scheduled to see cardiology this CT A&P w/ contrast 07/26/2024 revealed non-specific fecalization of the TI, colonic diverticulosis, tiny fat containing supraumbilical hernia, left fat containing inguinal hernia, L2-L3 osteophyte with moderate central canal stenosis - reports she has had hemorrhoids for the past 43 years - random rectal bleeding - BRB - will color the toilet water - episodes of bleeding without a BM - reports her last episodes of bleeding was July 2024 - intermittent sharp RLQ pain - ongoing for a long time, can radiate through to her back - unable to associate a trigger for pain - night sweats - denies any fevers - denies any rectal pain currently - Excedrin for chronic migraines 2-3 a day, once a week - feels migraines may be stress related - has a disabled son who has been sick recently with multiple admissions Colonoscopy - 2018? 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 this - occasional HB - occasional nausea - denies any emesis - nausea can last all day - uncertain if related to headaches - denies any upper abdominal pain - no change in nausea with PO intake - she has been diabetic for the past 2 years - chest pain Its my heart [facility] Medical History Hunner's ulcer Wears glasses Post-menopausal Psoriasis Diabetes Arthritis Interstitial cystitis Fatty liver High cholesterol Restless legs Back pain Migraine headache Syncope Dietary restriction History of hiatal hernia History of IBS Heartburn CPAP (continuous positive airway pressure) dependence Shortness of breath on exertion Leg cramps Neuropathy History of pain when walking History of echocardiogram History of stress test Cardiology follow-up encounter History of irregular heartbeat MVP (mitral valve prolapse) Hypertension Home Medications ?Medication ?Instructions ?Recorded ?Last Taken ?Type atenolol 100 mg tablet 100 mg PO QHS 02/08/23 12/15/23 22:00 History docusate sodium 100 mg capsule 100 mg PO QHS 02/08/23 02/10/23 History (Colace) melatonin 3 mg capsule 3 mg PO QHS 02/08/23 02/10/23 History multivitamin (Daily Multi-Vitamin 1 tab PO DAILY 02/08/23 02/10/23 History tablet) omega 5-dzv-sfk-fish oil 1,200 mg 1 cap PO QHS 02/08/23 02/10/23 History (144 mg-216 mg) capsule (Fish Oil) psyllium husk 0.4 gram capsule 0.4 g PO QHS 02/08/23 02/10/23 History (Daily Fiber) atorvastatin 10 mg tablet 10 mg PO DAILY 12/14/23 Unknown History metformin 500 mg tablet,extended 500 mg PO DAILY 12/14/23 Unknown History release 24 hr diphenhydramine HCl 25 mg tablet 25 mg PO Q4H PRN ALLERGIES 09/04/24 Unknown History (Allergy (diphenhydramine)) duloxetine 60 mg capsule,delayed 60 mg PO QDAY 09/04/24 Unknown History release epinephrine 0.3 mg/0.3 mL 0.3 mg IM ONCE PRN anaphylaxis 09/04/24 Unknown History injection, auto-injector hydrocortisone 2.5 % topical cream 1 applic NM QD-BID PRN rectal 09/04/24 Unknown Rx with perineal applicator bleeding #30 grams (Anusol-HC) pantoprazole 40 mg tablet,delayed 40 mg PO QDAY #90 tabs 09/04/24 Unknown Rx release peg 3350-electrolytes 236 240 ml PO Q10M #4,000 mL 09/04/24 Unknown Rx gram-22.74 gram-6.74 gram-5.86 gram solution (Golytely) polyethylene glycol 3350 17 4 g PO QDAY 09/04/24 Unknown History gram/dose oral powder (Miralax) buspirone 10 mg tablet 10 mg PO BID 11/02/24 Unknown History calcium no.26 167 mg-magnesium 2 cap PO DAILY 11/02/24 Unknown History no.15 83 mg-zinc 5 mg capsule Allergy/AdvReac Type Severity Reaction Status Date / Time bee venom protein (honey bee) Allergy Severe Hives Verified 11/07/24 12:23 pentazocine (From Talwin) Allergy Intermediate PASSED OUT Verified 11/07/24 12:23 Surgical History Hx of cystoscopy History of D&C History of cardiac catheterization Hx of colonoscopy Hx of shoulder surgery Hx of hysterectomy Social History Smoking Status: Never smoker ROS Constitutional Constitutional: Denies fatigue, fever(s), poor appetite, weight gain or weight loss Gastrointestinal Gastrointestinal: Denies belching, bloating, change in bowel habits, change in stool character, chewing difficulty, coffee ground emesis, constipation, cramping, diarrhea, dyspepsia, dysphagia, early satiety, excessive flatus, fecal incontinence, heartburn, hematemesis, hematochezia, hemorrhoids, loose stools, melena, nausea, odynophagia, rectal bleeding, tenesmus, vomiting or weight changes Vital Signs Vital Signs Vital Signs: 11/07/24 12:23 11/07/24 12:23 11/07/24 13:04 Temperature 98.4 F 98.4 F Temperature Source Temporal Pulse Rate 70 70 Respiratory Rate 18 18 Respiratory Pattern Normal Blood Pressure 124/59 H 124/59 H Blood Pressure Mean 80 Blood Pressure Source Monitor Blood Pressure Position Sitting Blood Pressure Location Left Arm Pulse Ox 99 99 Oxygen Delivery Method Room Air Room Air Weight Weight: 182 lb 1.629 oz Body Mass Index (BMI) 31.2 Physical Exam Const alert, oriented x3, no apparent distress and healthy appearing General Appearance: cooperative GI normal to inspection, nondistended, normoactive bowel sounds, soft to palpation, non-tender and non-distended Percussion: normal to percussion Rectal Exam: deferred Results Lab / Micro Data Labs: Laboratory Results - last 24 hr 11/07/24 12:18: POC Glucose 114 H Assessment & Plan Assessment/Plan (1) Nausea: (2) Lower abdominal pain: (3) Rectal bleeding: PLAN: Assessment and Plan Assessment and Plan (1) Constipation: Status: Acute (2) Rectal bleeding: Status: Acute (3) Lower abdominal pain: Status: Acute (4) Nausea: Status: Acute (5) Heartburn: Status: Acute Comment: OCC Medications: New pantoprazole take 30 minutes before breakfast daily 40 mg PO QDAY 90 tabs 1RF hydrocortisone 2.5% (Anusol-HC) 1 applic NM QD-BID PRN 30 grams 0RF rectal bleeding peg 3350-electrolytes 236-22.74-6.74 -5.86 gram (Golytely) take as directed for split dose bowel prep 240 mL PO Q10M 4,000 mL 0RF Plan 69y/o female presents for consultation of rectal bleeding. Labs completed 07/25/2024 reveal HGB 14.5, lipase, B12 and CMP unremarkable. Records reviewed from PCP which indicate a history of anxiety/depression, chest pain, hepatic steatosis, diverticulosis, thyroid nodule. She complains of BRBPR intermittent and not always associated with a bowel movement. She believes her last colonoscopy was in 2018. Denies any rectal pain or weight loss. She does experience intermittent lower abdominal pain and exam today was remarkable for RLQ tenderness. She also complains of chest pain, intermittent HB and nausea. She is scheduled to see cardiology ciro this week. She will start a PPI daily and proceed with bidirectional endoscopies. Patient Instructions: Colon & EGD - GoLytely Plan Details Follow Up:
--- NOTE | 2024-11-07 14:22 | OP.EGD_ITS ---
Patient Name: Ember Hong Procedure Date: 11/07/2024 1:41 PM Date of : 1955 Age: 69 Procedure: Upper GI endoscopy Indications: Epigastric abdominal pain, Dysphagia Providers: Rock Rasheed DO Referring MD: Jewel Desai Do Medicines: Monitored Anesthesia Care Patient Profile: This is a 69 year old female. Refer to note in patient chart for documentation of history and physical. Patient has symptoms of chronic epigastric abdominal pain and chronic dyspepsia. Complications: No immediate complications. Procedure: Pre-Anesthesia Assessment: - Prior to the procedure, a History and Physical was performed, and patient medications and allergies were reviewed. The patient is competent. The risks and benefits of the procedure and the sedation options and risks were discussed with the patient. All questions were answered and informed consent was obtained. Patient identification and proposed procedure were verified by the physician in the pre-procedure area. Mental Status Examination: alert and oriented. Airway Examination: normal oropharyngeal airway and neck mobility. Respiratory Examination: clear to auscultation. CV Examination: normal. Prophylactic Antibiotics: The patient does not require prophylactic antibiotics. Prior Anticoagulants: The patient has taken no anticoagulant or antiplatelet agents except for NSAID medication. ASA Grade Assessment: II - A patient with mild systemic disease. After reviewing the risks and benefits, the patient was deemed in satisfactory condition to undergo the procedure. The anesthesia plan was to use monitored anesthesia care (MAC). Immediately prior to administration of medications, the patient was re-assessed for adequacy to receive sedatives. The heart rate, respiratory rate, oxygen saturations, blood pressure, adequacy of pulmonary ventilation, and response to care were monitored throughout the procedure. The physical status of the patient was re-assessed after the procedure. After obtaining informed consent, the endoscope was passed under direct vision. Throughout the procedure, the patient's blood pressure, pulse, and oxygen saturations were monitored continuously. The Colonoscope was introduced through the mouth, and advanced to the third part of the duodenum. Small bowel enteroscopy was deemed necessary. The upper GI endoscopy was accomplished without difficulty. The patient tolerated the procedure well. Scope In: 1:52:32 PM Scope Out: 1:56:28 PM Total Procedure Duration Time 0 hours 3 minutes 56 seconds Findings: Mucosal changes including ringed esophagus were found in the middle third of the esophagus and in the lower third of the esophagus. Biopsies were obtained from the proximal and distal esophagus with cold forceps for histology of suspected eosinophilic esophagitis. Verification of patient identification for the specimen was done. Estimated blood loss was minimal. Patchy mildly erythematous mucosa without bleeding was found in the gastric body. Biopsies were taken with a cold forceps for histology. Biopsies were taken with a cold forceps for Helicobacter pylori testing. Verification of patient identification for the specimen was done. Estimated blood loss was minimal. Patchy mildly erythematous mucosa without active bleeding and with no stigmata of bleeding was found in the second portion of the duodenum and in the third portion of the duodenum. Biopsies were taken with a cold forceps for histology. Verification of patient identification for the specimen was done. Estimated blood loss was minimal. Impression: - Esophageal mucosal changes suggestive of eosinophilic esophagitis. - Erythematous mucosa in the gastric body. Biopsied. - Erythematous duodenopathy. Biopsied. - Biopsies were taken with a cold forceps for evaluation of eosinophilic esophagitis. Recommendation: - Discharge patient to home. - Resume previous diet. - Continue present medications. - Await pathology results. Procedure Code(s): --- Professional --- 29881, Small intestinal endoscopy, enteroscopy beyond second portion of duodenum, not including ileum; with biopsy, single or multiple CPT copyright 2021 [employer]. All rights reserved. The codes documented in this report are preliminary and upon medical billing coder review may be revised to meet current compliance requirements. Rock Rasheed DO 11/07/2024 2:21:55 PM This report has been signed electronically. Number of Addenda: 0 Note Initiated On: 11/07/2024 1:41 PM
--- NOTE | 2024-11-07 14:22 | PCM.POST.ANE ---
Anesthesia: Postop Eval I Current Vital Signs Temperature: 97.5 F Pulse Rate: 78 Blood Pressure: 116/65 Respiratory Rate: 14 Pulse Ox: 98 Oxygen Delivery Method: Room Air Assessment Airway patent: Yes Spontaneous unlabored respirations: Yes Mental status: Awake nausea: No Vomiting: No Anesthesia Complication: No Fluid Hydration Crystalloid volume administer (ml): 10 Total IV fluid infused: 10 Progress Note Anesthesia document: Postop Eval 1 completed: Yes
--- NOTE | 2024-11-07 14:22 | OP.CCLET_ITS ---
11/07/2024 Jewel Desai Do Re : Upper GI endoscopy procedure for Ember Hong Dear Giselle This procedure was performed on Thursday, November 07, 2024. My impressions and recommendations are as follows: Impressions : - Esophageal mucosal changes suggestive of eosinophilic esophagitis. - Erythematous mucosa in the gastric body. Biopsied. - Erythematous duodenopathy. Biopsied. - Biopsies were taken with a cold forceps for evaluation of eosinophilic esophagitis. Recommendations : - Discharge patient to home. - Resume previous diet. - Continue present medications. - Await pathology results. My findings are described in the full procedure note, which is enclosed. If I can be of further assistance, please feel free to contact me at . Sincerely, Rock Rasheed, 11/07/2024 2:21:55 PM This report has been signed electronically.
--- NOTE | 2024-11-07 14:25 | OP.CCLET_ITS ---
11/07/2024 Jewel Desai Do Re : Colonoscopy procedure for Ember Hong Dear Giselle This procedure was performed on Thursday, November 07, 2024. My impressions and recommendations are as follows: Impressions : - Diverticulosis in the recto-sigmoid colon and in the sigmoid colon. - Stool in the rectum, in the sigmoid colon and in the transverse colon. - The examination was otherwise normal on direct and retroflexion views. - No specimens collected. Recommendations : - Discharge patient to home. - Resume previous diet. - Continue present medications. - Referral for hemorrhoidectomy - Repeat colonoscopy in 10 years for screening purposes. My findings are described in the full procedure note, which is enclosed. If I can be of further assistance, please feel free to contact me at . Sincerely, Rock Rasheed, 11/07/2024 2:25:24 PM This report has been signed electronically.
--- NOTE | 2024-11-07 14:25 | OP.COLON_ITS ---
Patient Name: Ember Hong Procedure Date: 11/07/2024 1:56 PM Date of : 1955 Age: 69 Procedure: Colonoscopy Indications: Screening for colorectal malignant neoplasm Providers: Rock Rasheed DO Referring MD: Jewel Desai Do Medicines: Monitored Anesthesia Care Patient Profile: This is a 69 year old female. Refer to note in patient chart for documentation of history and physical. Patient has symptoms of chronic epigastric abdominal pain and chronic dyspepsia. Last Colonoscopy: several years ago. Complications: No immediate complications. Procedure: Pre-Anesthesia Assessment: - Prior to the procedure, a History and Physical was performed, and patient medications and allergies were reviewed. The patient is competent. The risks and benefits of the procedure and the sedation options and risks were discussed with the patient. All questions were answered and informed consent was obtained. Patient identification and proposed procedure were verified by the physician in the pre-procedure area. Mental Status Examination: alert and oriented. Airway Examination: normal oropharyngeal airway and neck mobility. Respiratory Examination: clear to auscultation. CV Examination: normal. Prophylactic Antibiotics: The patient does not require prophylactic antibiotics. Prior Anticoagulants: The patient has taken no anticoagulant or antiplatelet agents except for NSAID medication. ASA Grade Assessment: II - A patient with mild systemic disease. After reviewing the risks and benefits, the patient was deemed in satisfactory condition to undergo the procedure. The anesthesia plan was to use monitored anesthesia care (MAC). Immediately prior to administration of medications, the patient was re-assessed for adequacy to receive sedatives. The heart rate, respiratory rate, oxygen saturations, blood pressure, adequacy of pulmonary ventilation, and response to care were monitored throughout the procedure. The physical status of the patient was re-assessed after the procedure. After I obtained informed consent, the scope was passed under direct vision. Throughout the procedure, the patient's blood pressure, pulse, and oxygen saturations were monitored continuously. The Colonoscope was introduced through the anus and advanced to the terminal ileum. The colonoscopy was performed without difficulty. The patient tolerated the procedure well. The quality of the bowel preparation was adequate. The ileocecal valve, appendiceal orifice, and rectum were photographed. Scope In: 1:58:06 PM Scope Withdrawal Time 0 hours 9 minutes 31 seconds Scope Out: 2:11:12 PM Total Procedure Duration Time 0 hours 13 minutes 6 seconds Findings: The perianal and digital rectal examinations were normal. A few small-mouthed diverticula were found in the recto-sigmoid colon and sigmoid colon. Stool was found in the rectum, in the sigmoid colon and in the transverse colon. The exam was otherwise without abnormality on direct and retroflexion views. Hemorrhoids were found on perianal exam. Impression: - Diverticulosis in the recto-sigmoid colon and in the sigmoid colon. - Stool in the rectum, in the sigmoid colon and in the transverse colon. - The examination was otherwise normal on direct and retroflexion views. - No specimens collected. Recommendation: - Discharge patient to home. - Resume previous diet. - Continue present medications. - Referral for hemorrhoidectomy - Repeat colonoscopy in 10 years for screening purposes. Procedure Code(s): --- Professional --- G0121, Colorectal cancer screening; colonoscopy on individual not meeting criteria for high risk CPT copyright 2021 [employer]. All rights reserved. The codes documented in this report are preliminary and upon medical coder review may be revised to meet current compliance requirements. Rock Rasheed DO 11/07/2024 2:25:24 PM This report has been signed electronically. Number of Addenda: 0 Note Initiated On: 11/07/2024 1:56 PM
--- NOTE | 2024-11-07 20:21 | POSTOPAN2_ITS ---
Anesthesia Postop Eval I Sum Postop Eval Completion status Anesthesia document: Postop Eval 1 completed: Yes Anesthesia Postop Eval I Summary Anesthesia Postop Eval I Summary: Anesthesia Postop Eval I: Assessment Summary Airway patent Yes 11/07/24 14:22 INTERN PRODUCT MARKETING MANAGER.[email or web address] Spontaneous unlabored Yes 11/07/24 14:22 INTERN PRODUCT MARKETING MANAGER.HBARR respirations Mental status Awake 11/07/24 14:22 INTERN PRODUCT MARKETING MANAGER.HBARR nausea No 11/07/24 14:22 INTERN PRODUCT MARKETING MANAGER.HBARR Vomiting No 11/07/24 14:22 INTERN PRODUCT MARKETING MANAGER.[email or web address] Anesthesia Postop Eval I: Fluid Summary Crystalloid volume administer 10 11/07/24 14:22 INTERN PRODUCT MARKETING MANAGER.[email or web address] (ml) Colloids volume administered ( ml) Blood Product volume administered (ml) Total IV fluid infused 10 11/07/24 14:22 INTERN PRODUCT MARKETING MANAGER.HBARR Anesthesia Postop Eval I: Summary Notes Anesthesia Complication No 11/07/24 14:22 INTERN PRODUCT MARKETING MANAGER.HBARR Anesthesia Complication Comment: Post-operative progress note Anesthesia: Postop Eval II Evaluation Mental status: Awake and Calm Pain Level: 0 nausea: No Vomiting: No Complications Anesthesia Complication: No
--- NOTE | 2024-11-07 20:21 | PCM.POSTANE2 ---
Anesthesia Postop Eval I Sum Postop Eval Completion status Anesthesia document: Postop Eval 1 completed: Yes Anesthesia Postop Eval I Summary Anesthesia Postop Eval I Summary: Anesthesia Postop Eval I: Assessment Summary Airway patent Yes 11/07/24 14:22 PIT OPERATOR.[email or web address] Spontaneous unlabored Yes 11/07/24 14:22 PIT OPERATOR.[email or web address] respirations Mental status Awake 11/07/24 14:22 PIT OPERATOR.HBARR nausea No 11/07/24 14:22 PIT OPERATOR.HBARR Vomiting No 11/07/24 14:22 PIT OPERATOR.HBARR Anesthesia Postop Eval I: Fluid Summary Crystalloid volume administer 10 11/07/24 14:22 PIT OPERATOR.HBARR (ml) Colloids volume administered ( ml) Blood Product volume administered (ml) Total IV fluid infused 10 11/07/24 14:22 PIT OPERATOR.HBARR Anesthesia Postop Eval I: Summary Notes Anesthesia Complication No 11/07/24 14:22 PIT OPERATOR.HBARR Anesthesia Complication Comment: Post-operative progress note Anesthesia: Postop Eval II Evaluation Mental status: Awake and Calm Pain Level: 0 nausea: No Vomiting: No Complications Anesthesia Complication: No
== END 2024-11-07 15:15 | disposition home or self-care (01) ==
LOC: EN 12:01 → AC 12:02
PROVIDERS: PCP Student in an Organized Health Care Education/Training Program; Referring Provider Student in an Organized Health Care Education/Training Program; Visit Provider Internal Medicine Gastroenterology
PROC: 0DJD8ZZ Inspection of Lower Intestinal Tract, Via Natural or Artificial Opening Endoscopic (ICD-10-PCS; CPT 45378; principal; 2024-11-07 12:55)
DX: Z12.11 Encounter for screening for malignant neoplasm of colon (principal); E11.40 Type 2 diabetes mellitus with diabetic neuropathy, unspecified; K62.5 Hemorrhage of anus and rectum; K59.00 Constipation, unspecified; R07.9 Chest pain, unspecified; R13.10 Dysphagia, unspecified; I10 Essential (primary) hypertension; G43.709 Chronic migraine without aura, not intractable, without status migrainosus; R10.13 Epigastric pain; E78.00 Pure hypercholesterolemia, unspecified; Z99.89 Dependence on other enabling machines and devices; Z90.710 Acquired absence of both cervix and uterus; F41.9 Anxiety disorder, unspecified; F32.A Depression, unspecified; K57.30 Diverticulosis of large intestine without perforation or abscess without bleeding; R11.0 Nausea
CPT/HCPCS: 44361; G0121; 82962; 88305; 88342; A4216

== ENCOUNTER → 2024-11-28 | Outpatient (CLI) | payer MEDICARE, SELFPAY ==
[2024-11-30 15:08] LABS: Immunoglobulin A 287 mg/dL (87-352); t-Transglutaminase IgA <2 U/mL (0-3)
== END | disposition home or self-care (01) ==
LOC: LAB 13:38
PROVIDERS: PCP Student in an Organized Health Care Education/Training Program; Referring Provider Nurse Practitioner Acute Care; Visit Provider Nurse Practitioner Acute Care
DX: R11.0 Nausea (principal); R10.12 Left upper quadrant pain; R12 Heartburn
CPT/HCPCS: 82784; 83516